=== PATIENT | male | born 1975 | race Caucasian/White ===

== ENCOUNTER → 2019-12-06 09:53 | Outpatient (POV) | payer BC, SELFPAY ==
[2019-12-06 13:24] LABS: Ferritin 393 ng/ml (17.9-464)
[2019-12-07 03:39] LABS: Iron 133 ug/dL (38-169); UIBC 180 ug/dL (111-343)
[2019-12-07 07:04] LABS: Iron Saturation 42 % (15-55)
== END ==
PROVIDERS: Visit Provider Internal Medicine Medical Oncology
DX: D75.1 Secondary polycythemia (principal)
CPT/HCPCS: 36415; 81256; 82728; 83540; 83550